=== PATIENT | male | born 1990 | race Caucasian/White ===

== ENCOUNTER 2018-01-10 12:42 | Emergency (ER) | payer BC ==
[2018-01-10 12:48] VITALS: RESP 16; TEMP 98.6
--- NOTE | 2018-01-10 14:11 | EDPHY ---
H & P Time Seen by Provider: 01/10/18 13:55 HPI/ROS: Chief complaint. Hand injury HPI. 27-year-old male presents emergency department with injury to his right hand that occurred 2 days ago. He was snowboarding and fell striking his hand on a snow. He sustained pain to the 4th and 5th finger bases. No previous fracture. He is right handed. No other injuries. ROS Constitutional. no fever/chills, no weakness Eyes. no problems with vision ENT. no sore throat, no nasal drainage Cardiovascular. no chest pain Respiratory. no shortness of breath, no cough Abdominal. no abdominal pain, no nausea/vomiting, no diarrhea . no problems urinating MS. Right hand injury Skin. no rash Lymph. no swollen glands Neuro. no headache, no dizziness, no difficulty walking or with speech Past Medical/Surgical History: Healthy Social History: Single, daily smoker, no alcohol Smoking Status: Current every day smoker Physical Exam: General Appearance: Alert well-developed male mild distress vital signs are stable Eyes: Pupils equal and round no pallor or injection. ENT, Mouth: Mucous membranes are moist. Respiratory: There are no retractions, lungs are clear to auscultation. Cardiovascular: Regular rate and rhythm. Gastrointestinal: Abdomen is soft and nontender, no masses, bowel sounds normal. Neurological: Awake and alert, sensory and motor exams grossly normal. Skin: Warm and dry, no rashes. Musculoskeletal: Neck is supple nontender. Extremities right hand is diffusely swollen. Tenderness at the base of the 4th and 5th MCP joints without obvious deformity because of the swelling. Distal motor vascular sensitivity is intact Psychiatric: Patient is oriented X 3, there is no agitation. Constitutional: Initial Vital Signs Temperature (C) 37.0 C 01/10/18 12:45 Heart Rate 62 01/10/18 12:45 Respiratory Rate 16 01/10/18 12:45 Blood Pressure 122/82 H 01/10/18 12:45 O2 Sat (%) 97 01/10/18 12:45 O2 Delivery Mode Room Air Allergies/Adverse Reactions: No Known Allergies Allergy (Unverified 01/10/18 15:14) Home Medications: Medication Instructions Recorded Hydrocodone/APAP 5/325 [[place] 1 each PO Q4-6PRN PRN #10 tab 01/10/18 5/325 (*)] Medical Decision Making - Diagnostics Imaging Results: Imaging Impressions Hand X-Ray 01/10/18 12:49 Impression: Moderately angulated distal right fourth and fifth metacarpal boxer' s fractures. X-ray right hand shows moderately angulated distal 4th and 5th metacarpal fractures Post reduction shows better alignment of the fractures Procedures: ED procedure--hematoma block is performed by me to the fractures up the 4th and 5th MCP joints after sterile cleaning. I reduced the fractures after good anesthesia is obtained. Patient is placed in an ulnar gutter splint. Post splint application reviewed by me shows good anatomic position and distal motor vascular sensitivity to be intact ED Course/Re-evaluation: Patient remained stable. The patient and I discussed imaging study results, treatment plan including criteria for return importance of follow-up further evaluation. He expresses understanding and agreement Differential Diagnosis: I considered fracture, dislocation, contusion, sprain Departure - Departure Disposition: Home, Routine, Self-Care Clinical Impression: Boxer's metacarpal fracture, neck, closed Qualifiers: Encounter type: initial encounter Metacarpal bone: fifth Fracture alignment: displaced Laterality: right Qualified Code(s): S62.336A - Displaced fracture of neck of fifth metacarpal bone, right hand, initial encounter for closed fracture Condition: Good Instructions: Boxer Fracture (ED) Additional Instructions: Ice and elevation as much as possible next 1-2 days. Tylenol or hydrocodone as needed for discomfort. Splint on until seen by orthopedist. Make an appointment to be seen in the next 5-7 days by orthopedist Referrals: NONE *PRIMARY CARE P,. [Primary Care Provider] - As per Instructions Juan Woodall MD [Medical Doctor] - 5-7 days, call for appt. Prescriptions: Hydrocodone/APAP 5/325 [[place] 5/325 (*)] 1 each PO Q4-6PRN PRN #10 tab PRN Reason: Pain, Moderate
[2018-01-10 15:41] VITALS: BP 153/90; PULSE 74; O2SAT 96
== END 2018-01-10 15:41 | disposition home or self-care (01) ==
PROC: 0PSPXZZ Reposition Right Metacarpal, External Approach (ICD-10-PCS; principal; 2018-01-10)
DX: S62.336A Displaced fracture of neck of fifth metacarpal bone, right hand, initial encounter for closed fracture (principal); S62.334A Displaced fracture of neck of fourth metacarpal bone, right hand, initial encounter for closed fracture; F17.200 Nicotine dependence, unspecified, uncomplicated; V00.311A Fall from snowboard, initial encounter; Y93.23 Activity, snow (alpine) (downhill) skiing, snowboarding, sledding, tobogganing and snow tubing

== ENCOUNTER 2018-01-31 17:16 | Emergency (ER) | payer BC ==
[2018-01-31 17:26] VITALS: BP 109/67; RESP 16; TEMP 98.4; O2SAT 97
--- NOTE | 2018-01-31 17:52 | EDPHY ---
H & P Stated Complaint: Here 01/10 w/ R 5th MCP fx;wants new splint and work note - Personal History Current Tetanus Diphtheria and Acellular Pertussis (TDAP): Yes Tetanus Vaccine Date: 2015 - Medical/Surgical History Hx Asthma: No Hx Chronic Respiratory Disease: No Hx Diabetes: No Hx Cardiac Disease: No Hx Renal Disease: No Hx Cirrhosis: No Hx Alcoholism: No Hx HIV/AIDS: No Hx Splenectomy or Spleen Trauma: No Other PMH: denies - Social History Smoking Status: Current every day smoker Time Seen by Provider: 01/31/18 17:46 HPI/ROS: CHIEF COMPLAINT: Requesting new splint HISTORY OF PRESENT ILLNESS: 28-year-old male with seen emergency department 10/2018 after he injured his right 5th metacarpal snowboarding. He had reduction at that time, splinting was told to follow up with Orthopedics. He has not followed up with Orthopedics. In the ER requesting a replacement splint. This is the same splint he had on when he was initially seen the ER. He has intermittent paresthesias to the digit. No new trauma. PHYSICAL EXAM (Prior to examination, patient consented to physical exam, hands were washed and my usual and customary physical exam procedures followed) 1) GENERAL: Well-developed, well-nourished, alert and oriented. Appears to be in no acute distress. 2) HEAD: Normocephalic 3) HEENT: Pupils equal, round, reactive to light bilaterally. 4) LUNGS: Breathing comfortably. 5) MUSCULOSKELETAL: Splint is dirty. It is taken down revealing normal appearing skin with mild subacute ecchymosis. Intact skin. Tender to palpation 5th metacarpal. Soft compartments. Soft compartments. Normal coloration. 6) SKIN: Intact 7) VASCULAR: pulses and cap refill present are brisk 8) NEUROLOGIC: Radial, ulnar, median nerve function intact with no deficits appreciated on exam DIFFERENTIAL DIAGNOSIS: in no particular order including but not limited to fracture, sprain, compartment syndrome Procedure: Splint A new Ortho Glass ulnar gutter splint splint was applied by ER entry level installation technician. After application of the splint I returned and re-examined the patient. The splint was adequately immobilizing the joint and distal to the splint the patient's circulation and sensation were intact. Patient shows no signs of compartment syndrome. Was given orthopedic precautions. (Juliet Navarro) Constitutional: Initial Vital Signs Temperature (C) 36.9 C 01/31/18 17:20 Heart Rate 68 01/31/18 17:20 Respiratory Rate 16 01/31/18 17:20 Blood Pressure 109/67 01/31/18 17:20 O2 Sat (%) 97 01/31/18 17:20 O2 Delivery Mode Room Air Allergies/Adverse Reactions: No Known Allergies Allergy (Verified 01/31/18 17:24) Home Medications: Medication Instructions Recorded NK [No Known Home Meds] 01/31/18 Medical Decision Making ED Course/Re-evaluation: I do not think that repeat imaging is emergently indicated. I have recommend he follow up Orthopedics as this injury is already several weeks old. I did discuss the potential complications of delay in seeking medical care, including , but not limited to, permanent disability of the affected extremity.. He states that he has the name of the hand surgeon, nonetheless I have provided him with this name again of the initial and surgeon he was referred to. He has been given a new splint. He has no evidence of compartment syndrome. He has no evidence of infection. He is comfortable with this plan. Care of patient under supervision of secondary supervising physician Dr Blackburn . (Juliet Navarro) Departure - Departure Disposition: Home, Routine, Self-Care Clinical Impression: Fracture of fifth metacarpal bone of right hand Qualifiers: Encounter type: subsequent encounter Fracture type: closed Metacarpal location : shaft Fracture alignment: nondisplaced Fracture healing: with routine healing Qualified Code(s): S62.356D - Nondisplaced fracture of shaft of fifth metacarpal bone, right hand, subsequent encounter for fracture with routine healing Condition: Good Instructions: Boxer Fracture (ED) Additional Instructions: Return to the ER immediately if you experience discoloration, have worsening pain, numbness, tingling, or any other symptoms that concern you. If you received x-rays in the emergency department today, be advised, that ligamentous , tendon, muscular, and other non-bony injury cannot be fully ruled out. It is very important to follow up with Orthopedics. Referrals: Juan Woodall MD [Medical Doctor] - As per Instructions Stand Alone Forms: Work Limited Duty
[2018-01-31 18:52] VITALS: PULSE 88
== END 2018-01-31 18:50 | disposition home or self-care (01) ==
DX: S62.356D Nondisplaced fracture of shaft of fifth metacarpal bone, right hand, subsequent encounter for fracture with routine healing (principal); F17.200 Nicotine dependence, unspecified, uncomplicated; V00.318D Other snowboard accident, subsequent encounter

== ENCOUNTER 2018-04-25 11:51 | Emergency (ER) | payer SELFPAY ==
[2018-04-25] MEDS ORDERED: NS 500 ML IV ONE (13:02)
--- NOTE | 2018-04-25 13:09 | EDPHY ---
H & P Time Seen by Provider: 04/25/18 12:51 HPI/ROS: HPI Abdominal discomfort, urinary incontinence. 28-year-old male by private vehicle. He reports that for the last week he has had a sensation of fullness and bloating in his abdomen. He describes this as being in the mid and lower abdomen. Associated with this he states that he has had dribbling of urine which has worsened over the last week. He reports that he can hold his urine for the most part but states that he has a very fine dribble of that otherwise. He denies back pain. No loss of sensation or weakness in his lower extremities. No testicular pain. Last bowel movement was yesterday. He describes this as normal. No bloody or melenic stool. No diarrhea. He has not had any nausea or vomiting. Last meal was earlier today. He denies any significant past medical history. ROS: Constitutional: No fever, no chills. No weakness. Eyes: No discharge. No changes in vision. ENT: No sore throat. No nasal congestion or rhinorrhea. Respiratory: No cough. No shortness of breath. Cardiac: No chest pain, no palpitations. Gastrointestinal: As above, no vomiting, no diarrhea. Genitourinary: No hematuria. No dysuria or increased frequency with urination. As above. Musculoskeletal: No back pain. No neck pain. No myalgias or arthralgias. Skin: No rashes. Neurological: No headache. No focal weakness or altered sensation. Past medical history: He denies any significant past medical history. Social history: Smoker. He drinks alcohol regularly. Mostly beer. Reports that he has used cocaine recently. Here by himself. Physical Exam: General Appearance: Alert, no distress. This patient is responding to questions appropriately and in full sentences. This patient appears well- hydrated and well-nourished. Eyes: Pupils equal and round no pallor or injection. No lid edema, erythema or injection. Respiratory: There are no retractions, lungs are clear to auscultation with good air movement bilaterally. Cardiovascular: Regular rate and rhythm. No murmur. Gastrointestinal: Abdomen is soft with vague fullness in the right lower abdomen, he does not have significant tenderness on palpation to this area, no masses, bowel sounds normal. No focal tenderness at McBurney's point. No Barber sign. : Normal circumcised penis. No lesions. No purulence from the penile meatus. No leakage of urine on my exam. Testicles are of normal lie. No edema or erythema or significant swelling. No clinical evidence of torsion. Neurological: Motor sensory function is grossly intact. Motor sensory function is intact in all myotomes in dermatomes of the bilateral lower extremities. Cranial nerves are normal. Gait is normal. Skin: Warm and dry, no rashes. Musculoskeletal: Neck is supple and nontender. No CVA tenderness bilaterally. No midline cervical, thoracic, lumbar or sacral tenderness on palpation. Extremities are symmetrical. All joints range without pain or impingement. Psychiatric: No agitation. No depression. Database: EKG: Imaging: CT abdomen and pelvis with IV contrast: The appendix is well visualized and is normal. There is no evidence of hydronephrosis or ureterolithiasis. There is a slight thickening of the bladder wall as well as the prostate. This study is otherwise normal. Results were discussed with staff radiologist Dr. Nelson Long. Procedures: Emergency department course: Vital signs reviewed and are normal. He is afebrile. IV was placed. He was started on IV normal saline with 500 cc to be given over the next hour. Abdominal exam concerning for a possible mass. Differential includes malignancy as well as STD and UTI. 3:10 p.m., patient re-evaluated. He is resting comfortably at this time. Results of his diagnostic workup discussed with him. Vital signs reviewed and are normal. He has been afebrile. Pending STI test discussed with him. He feels comfortable going home and I feel he is safe for discharge. I will have him follow up with Urology for re-evaluation this week. He is in agreement with this plan. I do not feel that antibiotics are indicated at this time. Return to emergency department precautions were thoroughly reviewed with him. All of his questions were answered. He was discharged in good condition. Differential Diagnosis: The differential diagnosis on this patient includes but is not limited to UTI, STD, malignancy. Traumatic injury unlikely. This represents a partial list of diagnoses considered. These considerations are based on history, physical exam , past history, reassessment and diagnostic testing. Smoking Status: Current every day smoker Constitutional: Initial Vital Signs Temperature (C) 36.6 C 04/25/18 11:56 Heart Rate 72 04/25/18 11:56 Respiratory Rate 16 04/25/18 11:56 Blood Pressure 128/84 H 04/25/18 11:56 O2 Sat (%) 97 04/25/18 11:56 O2 Delivery Mode Room Air Allergies/Adverse Reactions: No Known Allergies Allergy (Verified 04/25/18 11:56) Home Medications: Medication Instructions Recorded NK [No Known Home Meds] 01/31/18 Medical Decision Making - Diagnostics Imaging Results: Imaging Impressions Abdomen CT 04/25/18 13:03 Impression: 1. No definite acute abdominal or pelvic abnormality. 2. Equivocal thickening of the bladder wall, as well as prostatic hyperemia with clinical correlation recommended. 3. See above report for additional findings. Results called and discussed with Melia Gómez MD on April 25, 2018 at 1442 hours. - Data Points Laboratory Results: Laboratory Results 04/25/18 13:10 04/25/18 13:10 04/25/18 04/25/18 04/25/18 13:10 13:10 12:00 WBC 8.33 10^3/uL 10^3/uL (3.80-9.50) RBC 4.83 10^6/uL 10^6/uL (4.40-6.38) Hgb 14.7 g/dL g/dL (13.7-17.5) Hct 41.5 % % (40.0-51.0) MCV 85.9 fL fL (81.5-99.8) MCH 30.4 pg pg (27.9-34.1) MCHC 35.4 g/dL g/dL (32.4-36.7) RDW 11.9 % % (11.5-15.2) Plt Count 283 10^3/uL 10^3/uL (150-400) MPV 9.2 fL fL (8.7-11.7) Neut % (Auto) 69.5 % % (39.3-74.2) Lymph % (Auto) 14.3 % L % (15.0-45.0) Stark % (Auto) 14.2 % H % (4.5-13.0) Eos % (Auto) 1.3 % % (0.6-7.6) Baso % (Auto) 0.5 % % (0.3-1.7) Nucleat RBC Rel Count 0.0 % % (0.0-0.2) Absolute Neuts (auto) 5.79 10^3/uL 10^3/uL (1.70-6.50) Absolute Lymphs (auto) 1.19 10^3/uL 10^3/uL (1.00-3.00) Absolute Monos (auto) 1.18 10^3/uL H 10^3/uL (0.30-0.80) Absolute Eos (auto) 0.11 10^3/uL 10^3/uL (0.03-0.40) Absolute Basos (auto) 0.04 10^3/uL 10^3/uL (0.02-0.10) Absolute Nucleated RBC 0.00 10^3/uL 10^3/uL (0-0.01) Immature Gran % 0.2 % % (0.0-1.1) Immature Gran # 0.02 10^3/uL 10^3/uL (0.00-0.10) Sodium 140 mEq/L mEq/L (135-145) Potassium 4.3 mEq/L mEq/L (3.3-5.0) Chloride 105 mEq/L mEq/L (97-110) Carbon Dioxide 25 mEq/l mEq/l (22-31) Anion Gap 10 mEq/L mEq/L (8-16) BUN 11 mg/dL mg/dL (7-23) Creatinine 0.9 mg/dL mg/dL (0.7-1.3) Estimated GFR > 60 Glucose 97 mg/dL mg/dL (70-100) Calcium 9.3 mg/dL mg/dL (8.5-10.4) Urine Color YELLOW Urine Appearance CLEAR Urine pH 7.0 (5.0-7.5) Ur Specific [place] 1.026 (1.002-1.030) Urine Protein NEGATIVE (NEGATIVE) Urine Ketones NEGATIVE (NEGATIVE) Urine Blood 1+ H (NEGATIVE) Urine Nitrate NEGATIVE (NEGATIVE) Urine Bilirubin NEGATIVE (NEGATIVE) Urine Urobilinogen NEGATIVE EU EU (0.2-1.0) Ur Leukocyte Esterase NEGATIVE (NEGATIVE) Urine RBC 15-25 /hpf H /hpf (0-3) Urine WBC 1-3 /hpf /hpf (0-3) Ur Epithelial Cells NONE SEEN /lpf /lpf (NONE-1+) Urine Mucus TRACE /lpf /lpf (NONE-1+) Urine Glucose NEGATIVE (NEGATIVE) C.trachomatis RNA (TMA) N.gonorrhoeae RNA (TMA) 04/25/18 12:00 WBC RBC Hgb Hct MCV MCH MCHC RDW Plt Count MPV Neut % (Auto) Lymph % (Auto) Stark % (Auto) Eos % (Auto) Baso % (Auto) Nucleat RBC Rel Count Absolute Neuts (auto) Absolute Lymphs (auto) Absolute Monos (auto) Absolute Eos (auto) Absolute Basos (auto) Absolute Nucleated RBC Immature Gran % Immature Gran # Sodium Potassium Chloride Carbon Dioxide Anion Gap BUN Creatinine Estimated GFR Glucose Calcium Urine Color Urine Appearance Urine pH Ur Specific [place] Urine Protein Urine Ketones Urine Blood Urine Nitrate Urine Bilirubin Urine Urobilinogen Ur Leukocyte Esterase Urine RBC Urine WBC Ur Epithelial Cells Urine Mucus Urine Glucose C.trachomatis RNA (TMA) Pending N.gonorrhoeae RNA (TMA) Pending Medications Given: Discontinued Medications Sodium Chloride (Ns) 500 mls @ 0 mls/hr IV EDNOW ONE; Wide Open PRN Reason: Protocol Stop: 04/25/18 13:03 Last Admin: 04/25/18 13:13 Dose: 500 mls Departure - Departure Disposition: Home, Routine, Self-Care Clinical Impression: Abdominal discomfort, Hematuria, History of urinary incontinence Condition: Good Instructions: Acute Abdominal Pain (ED) Additional Instructions: Read and follow provided instructions. Follow-up with Urology as discussed this week for re-evaluation. Call their office tomorrow morning for appointment time. Explain this is for an emergency department follow-up. I will give you to different referral options. The results of your sexually transmitted infection test will be available tomorrow. If these are positive you will need to be treated with appropriate antibiotics. Return to the emergency department for worsening symptoms, back pain, fever or other serious concerns. Referrals: Macie Mora MD [Medical Doctor] - As per Instructions Austin Estrada MD [Medical Doctor] - As per Instructions Stand Alone Forms: Work Excuse
[2018-04-25 13:22] LABS: PLATELET COUNT 283 10^3/uL (150-400)
[2018-04-25] MEDS ORDERED: IOPAMIDOL (ISOVUE-300) 100 ML BTL ONE (13:39)
[2018-04-25 15:56] VITALS: BP 124/94
[2018-04-26 12:46] LABS: GC AMPLIFICATION GENPROBE NEGATIVE (NEGATIVE)
== END 2018-04-25 15:55 | disposition home or self-care (01) ==
DX: R10.9 Unspecified abdominal pain (principal); R31.9 Hematuria, unspecified; F17.200 Nicotine dependence, unspecified, uncomplicated; E86.9 Volume depletion, unspecified; Z87.440 Personal history of urinary (tract) infections
CPT/HCPCS: Q9967

== ENCOUNTER 2018-10-05 18:28 | Emergency (ER) | payer SELFPAY ==
[2018-10-05 18:42] VITALS: BP 139/96
== END 2018-10-05 19:46 | disposition left against medical advice (07) ==
DX: Z53.21 Procedure and treatment not carried out due to patient leaving prior to being seen by health care provider (principal)